=== PATIENT | male | born 1970 | race Two or more races ===

== ENCOUNTER → 2018-12-09 | Outpatient (CLI) | payer OTHER ==
[2018-12-09 10:24] LABS: ANION GAP 11 (5-13); BLOOD UREA NITROGEN 11 mg/dl (7-20); CALCIUM 9.3 mg/dl (8.4-10.2); CARBON DIOXIDE 26 mmol/L (21-31); CHLORIDE 104 mmol/L (97-110); CREATININE 0.75 mg/dl (0.61-1.24); Estimated GFR > 60 mL/min (>60); GLUCOSE 125 mg/dl (70-220); POTASSIUM 4.1 mmol/L (3.5-5.1); SODIUM 141 mmol/L (135-144)
== END | disposition home or self-care (01) ==
LOC: LAB 09:33
DX: R94.39 Abnormal result of other cardiovascular function study (principal); R06.02 Shortness of breath
CPT/HCPCS: 80048

== ENCOUNTER → 2019-01-03 | Outpatient (CLI) | payer OTHER ==
[~2019-01-03] MED LIST: IOHEXOL 100 ML; NITROGLYCERIN AEROSOL (4.9 GM) SL; SOD CHLORIDE 0.9% 100 ML
[2019-01-03] MEDS: NITROGLYCERIN AEROSOL (4.9 GM) (11:51)
== END | disposition home or self-care (01) ==
LOC: C/S 09:13
DX: R94.39 Abnormal result of other cardiovascular function study (principal); R07.9 Chest pain, unspecified; R06.02 Shortness of breath
CPT/HCPCS: 75571; 75571-59; 75574